=== PATIENT | female | born 2000 | race Caucasian/White ===

== ENCOUNTER 2024-05-03 08:57 | Inpatient (IN) ==
[2024-05-03 09:33] LABS: ABS Eosinophils 0.1 10^3/uL (0.0-0.5); ABS Lymphocytes 0.5 10^3/uL (1.0-4.8); ABS Monocytes 0.3 10^3/uL (0.0-0.9); ABS Neutrophils 6.3 10^3/uL (1.5-7.6); Eosinophil % 0.9 %; Hematocrit 39.9 % (35-45); Hemoglobin 14.1 g/dL (11.5-14.3); Lymphocyte % 7.3 %; Mean Corpuscular Hemoglobin 32.3 pg (27-33); Mean Corpuscular Hgb Conc 35.5 g/dL (31-36); Platelet Count 182 10^3/uL (150-450); Red Blood Count 4.38 10^6/uL (3.63-4.92); Red Cell Distribution Width 12.4 % (12-17); White Blood Count 7.2 10^3/uL (3.8-11.8)
[2024-05-03 09:44] LABS: INR 1.13 (0.85-1.14)
[2024-05-03 09:52] LABS: ALT 19 U/L (7-52); AST 23 U/L (13-39); Albumin 4.7 g/dL (3.5-5.7); Albumin/Globulin Ratio 1.9 (1-3); Alkaline Phosphatase 45 U/L (35-149); Anion Gap 8 mmol/L (2-16); Blood Urea Nitrogen 11 mg/dL (6-24); CO2 Carbon Dioxide 25 mmol/L (22-32); Calcium 9.4 mg/dL (8.6-10.3); Chloride 106 mmol/L (101-111); Creatinine, Serum 0.77 mg/dL (0.51-0.95); Globulin 2.5 g/dL (2-4); Glucose 93 mg/dL (70-100); Potassium 3.7 mmol/L (3.5-5.0); Sodium 139 mmol/L (135-145); Total Bilirubin 1.1 mg/dL (0.2-1.0); Total Protein 7.2 g/dL (6.4-8.9); eGFR CKD-EPI 111.8 (>60)
[2024-05-03 09:59] LABS: High Sens Troponin Baseline < 3 pg/mL (<15)
[2024-05-03 10:58] LABS: High Sensitivity Troponin 1 Hr < 3 pg/mL (<15)
[2024-05-03] MEDS: Iohexol 350 (CONTRAST) 500 ML MDV IV ONE (12:24)
[2024-05-03] MEDS ORDERED: Sulfur Hexaflouride MICROSPHR 25 MG VIAL IV PRN (12:53)
[2024-05-03 13:11] LABS: PCO2 Arterial 36 mmHg (35-45); PO2 Arterial 70 mmHg (80-100)
[2024-05-03 14:09] LABS: C Reactive Protein < 1.00 mg/L (<8.01); Magnesium 1.8 mg/dL (1.9-2.7); Phosphorus 3.3 mg/dL (2.5-5.0)
[2024-05-03 14:31] LABS: HCG Pregnancy < 0.60 mIU/mL
[2024-05-03] MEDS: Albuterol/Ipratropium NEB.SOL (2.5/0.5 MG) 3 ML NEB.SOLN INH ONE (14:39)
[2024-05-03] MEDS: Magnesium Sulfate 2 gm BAG 2 GM/50 ML BAG IVPB ONE (15:55)
[2024-05-03] MEDS: Enoxaparin 40 MG/0.4 ML SYR SUBCUT SCH (16:43)
[2024-05-03] MEDS: Albuterol/Ipratropium NEB.SOL (2.5/0.5 MG) 3 ML NEB.SOLN INH SCH (18:01)
[2024-05-03] MEDS: Azithromycin 500 mg/250 ml NS 500 MG/250 ML BAG IVPB SCH (18:05)
[2024-05-03] MEDS: Lactated Ringers 1000 ml BAG 500 ML IV ONE (18:32)
[2024-05-03 19:35] LABS: % Iron Saturation 52 % (15-55); .Transferrin 286 mg/dL (203-362); Iron 206 ug/dL (50-212); Total Iron Binding Capacity 400 mcg/dL (250-450); Unsaturated Iron Binding 194 ug/dL
[2024-05-03] MEDS: Lactated Ringers 1000 ml BAG 1,000 ML IV SCH (21:18)
[2024-05-04 05:07] LABS: ABS Lymphocytes 0.2 10^3/uL (1.0-4.8); ABS Monocytes 0.2 10^3/uL (0.0-0.9); ABS Neutrophils 4.3 10^3/uL (1.5-7.6); Hematocrit 38.2 % (35-45); Hemoglobin 13.3 g/dL (11.5-14.3); Lymphocyte % 3.2 %; Mean Corpuscular Hemoglobin 31.9 pg (27-33); Mean Corpuscular Hgb Conc 34.7 g/dL (31-36); Mean Platelet Volume 8.3 fL (7.5-11.2); Nucleated Red Blood Cells % 0.1 %/100WBC (0.0-0.8); Platelet Count 175 10^3/uL (150-450); Red Blood Count 4.16 10^6/uL (3.63-4.92); Red Cell Distribution Width 12.3 % (12-17); White Blood Count 4.7 10^3/uL (3.8-11.8)
[2024-05-04 06:40] LABS: Albumin 4.7 g/dL (3.5-5.7); Albumin/Globulin Ratio 1.8 (1-3); Calcium 9.3 mg/dL (8.6-10.3); Creatinine, Serum 0.84 mg/dL (0.51-0.95); Globulin 2.6 g/dL (2-4); Magnesium 2.3 mg/dL (1.9-2.7); Phosphorus 4.7 mg/dL (2.5-5.0); Potassium 4.1 mmol/L (3.5-5.0); Total Bilirubin 0.6 mg/dL (0.2-1.0); Total Protein 7.3 g/dL (6.4-8.9); eGFR CKD-EPI 100.7 (>60)
[2024-05-04] MEDS ORDERED: Albuterol/Ipratropium NEB.SOL (2.5/0.5 MG) 3 ML NEB.SOLN INH PRN (07:33)
[2024-05-04] MEDS: Albuterol/Ipratropium NEB.SOL (2.5/0.5 MG) 3 ML NEB.SOLN INH SCH (07:34)
[2024-05-04 08:15] LABS: Ferritin 61.7 ng/mL (11-307)
[2024-05-04 11:32] VITALS: BP 112/72
[2024-05-06 17:35] LABS: Adenovirus Undetected (Undetected); Bordetella parapertussis Undetected (Undetected); Bordetella pertussis Undetected (Undetected); Chlamydophila pneumoniae Undetected (Undetected); Coronavirus 229E Undetected (Undetected); Coronavirus HKU1 Undetected (Undetected); Coronavirus NL63 Undetected (Undetected); Coronavirus OC43 Undetected (Undetected); Human Metapneumovirus Undetected (Undetected); Human Rhinovirus/Enterovirus Undetected (Undetected); Influenza A Detected (Undetected); Influenza B Undetected (Undetected); Mycoplasmoides pneumoniae Undetected (Undetected); Parainfluenza Virus 1 Undetected (Undetected); Parainfluenza Virus 2 Undetected (Undetected); Parainfluenza Virus 3 Undetected (Undetected); Parainfluenza Virus 4 Undetected (Undetected); Respiratory Syncytial Virus Undetected (Undetected); Specimen Source NASOPHARYNGEAL SWAB
== END 2024-05-04 11:10 | disposition home or self-care (01) | DRG 189 ==
LOC: ED 08:57 → EDHOLD 13:31 → ICU 13:53
PROVIDERS: ADMIT Internal Medicine Pulmonary Disease; ATTEND Internal Medicine Pulmonary Disease